=== PATIENT | male | born 1955 | race Two or more races ===

== ENCOUNTER 2022-09-16 07:24 | Inpatient (IN) | payer MEDICARE, MEDICAID ==
[2022-09-16] VITALS (22 sets, daily range): BP systolic 95–147; BP diastolic 37–65
[~2022-09-16] VITALS: Ht 157.5 cm; Wt 67.6 kg
[2022-09-16] MEDS ORDERED: ACCU-CHEK COMFORT CURVE STRIP VI ONE (07:45)
[2022-09-16] MEDS ORDERED: NOREPINEPHRINE 8 MG/250ML KIT 250 ML IV ONE (08:12)
[2022-09-16] MEDS: NOREPINEPHRINE 8 MG/250ML KIT 250 ML IV SCH ×2 (08:22→20:17)
[2022-09-16 09:01] LABS: Hemoglobin 7.5 g/dL (13.5-17.5); Mean Corpuscular Volume 95.9 fL (80.0-100.0)
[2022-09-16 09:04] LABS: Hematocrit 24.3 % (41.0-53.0); Mean Corpuscular Hemoglobin 29.7 pg (28.0-32.0); Red Blood Cells 2.54 10^6/uL (4.5-5.90); Red Cell Distribution Width 18.4 % (11.8-14.3)
[2022-09-16 09:13] LABS: White Blood Cell 33.5 10^3/uL (4.4-10.8)
[2022-09-16 09:14] LABS: Basophils % (manual) 0 (0.0-2.0); Blast Cells 0; Eosinophils % (manual) 0 (0-7); Metamyelocytes % 0; Myelocytes % 0; Promyelocytes % 0; Reactive Lymphocytes 0
[2022-09-16] MEDS ORDERED: CLINDAMYCIN 300MG IV 50 ML IV ONE (09:15)
[2022-09-16] MEDS ORDERED: PIPERACILLIN-TAZOB 3.375GM 100 ML IV ONE (09:15)
[2022-09-16 09:34] LABS: Albumin 1.8 g/dL (3.4-5.0); Potassium 3.5 mmol/L (3.5-5.1)
[2022-09-16 09:38] LABS: BUN/Creatinine Ratio 4.7 (10.0-20.0); Bilirubin, Total 0.2 mg/dL (0.2-1.0); Total Protein 5.2 g/dL (6.4-8.2)
[2022-09-16] MEDS ORDERED: metroNIDAZOLE 500MG/100ML 100 ML IV ONE (10:30)
[2022-09-16 11:28] LABS: Band Neutrophils % (manual) 4; Lymphocytes % (manual) 12 (10.0-50.0); Monocytes % (manual) 4 (0-12)
[2022-09-16] MEDS ORDERED: ONDANSETRON HCL 4 MG/2 ML VIAL IV PRN (13:00)
[2022-09-16] MEDS ORDERED: DEXTROSE (50%) 50ML SYRG IV PRN (13:00)
[2022-09-16] MEDS ORDERED: DOCUSATE SOD 100 MG CAP PO PRN (13:00)
[2022-09-16 13:42] LABS: Magnesium 2.4 mg/dL (1.6-2.6); Phosphorus 5.7 mg/dL (2.5-4.90)
[2022-09-16] MEDS ORDERED: VANCOMYCIN PER PHARMACY 0 MG IV SCH (14:00)
[2022-09-16 14:04] LABS: Hematocrit 28.1 % (41.0-53.0); Hemoglobin 8.3 g/dL (13.5-17.5)
[2022-09-16 14:31] LABS: Lactic Acid w/Reflex 4.7 mmol/L (0.4-2.0)
[2022-09-16] MEDS ORDERED: VANCOMYCIN 750mg/250ml 250 ML IV ONE (15:00)
[2022-09-16] MEDS ORDERED: ALBUMIN 25% 100 ML IV ONE (17:15)
[2022-09-16] MEDS ORDERED: PERITONEAL DIALYSIS IP ONE (17:30)
[2022-09-16] MEDS: ACCU-CHEK COMFORT CURVE STRIP VI SCH (18:35)
[2022-09-16] MEDS: InsuLIN REG 1unit/0.01ml Soln (100units/ml) SC SCH (18:39)
[2022-09-16] MEDS ORDERED: LISI40TA11 PO (18:50)
[2022-09-16] MEDS ORDERED: REPA2TAB8 OR (18:50)
[2022-09-16] MEDS ORDERED: CALC667C PO (18:50)
[2022-09-16] MEDS ORDERED: FERR-20 PO (18:50)
[2022-09-16] MEDS ORDERED: AML5T GT (18:50)
[2022-09-16] MEDS ORDERED: CIPR500T4 PO (18:50)
[2022-09-16] MEDS ORDERED: METO25TA5 PO (18:50)
[2022-09-16] MEDS ORDERED: ATOR40TA52 PO (18:50)
[2022-09-16] MEDS ORDERED: SITA50TA PO (18:50)
[2022-09-16] MEDS ORDERED: ASPI325T4 PO (18:50)
[2022-09-16] MEDS ORDERED: LINEZOLID 600MG/300ML 300 ML IV SCH (22:00)
[2022-09-16] MEDS: PANTOPRAZOLE 40 MG/10 ML VIAL INJ IV SCH (22:02)
[2022-09-16] MEDS: PIPERACILLIN-TAZOB 2.25GM 50 ML IV SCH (22:02)
[2022-09-17] VITALS (102 sets, daily range): BP systolic 82–159; BP diastolic 36–89
[2022-09-17 04:23] LABS: Hematocrit 24.5 % (41.0-53.0); Hemoglobin 7.3 g/dL (13.5-17.5); Mean Corpuscular Hemoglobin 28.9 pg (28.0-32.0); Mean Corpuscular Hgb Conc. 29.8 g/dL (32.0-36.0); Mean Corpuscular Volume 96.9 fL (80.0-100.0); Red Blood Cells 2.53 10^6/uL (4.5-5.90); Red Cell Distribution Width 18.5 % (11.8-14.3)
[2022-09-17 04:27] LABS: Albumin 2.2 g/dL (3.4-5.0); BUN/Creatinine Ratio 5.1 (10.0-20.0); Calcium 8.1 mg/dL (8.5-10.1); Potassium 3.3 mmol/L (3.5-5.1)
[2022-09-17 04:29] LABS: Bilirubin, Total 0.3 mg/dL (0.2-1.0); Total Protein 6.5 g/dL (6.4-8.2)
[2022-09-17 05:16] LABS: White Blood Cell 42.6 10^3/uL (4.4-10.8)
[2022-09-17 05:17] LABS: Basophils % (manual) 0 (0.0-2.0); Blast Cells 0; Eosinophils % (manual) 0 (0-7); Metamyelocytes % 0; Myelocytes % 0; Promyelocytes % 0; Reactive Lymphocytes 0
[2022-09-17] MEDS: ACCU-CHEK COMFORT CURVE STRIP VI SCH ×4 (05:47→18:50)
[2022-09-17] MEDS: InsuLIN REG 1unit/0.01ml Soln (100units/ml) SC SCH ×4 (05:57→18:51)
[2022-09-17 08:36] LABS: Band Neutrophils % (manual) 9; Lymphocytes % (manual) 3 (10.0-50.0); Monocytes % (manual) 6 (0-12)
[2022-09-17] MEDS ORDERED: cefTRIAXone 1GM/50ML D5W 50 ML IV SCH (09:00)
[2022-09-17] MEDS ORDERED: PERITONEAL DIALYSIS 1.5% SOLN 2,000 ML IP SCH ×2 (10:00→16:00)
[2022-09-17] MEDS: PANTOPRAZOLE 40 MG/10 ML VIAL INJ IV SCH (10:32)
[2022-09-17] MEDS: PIPERACILLIN-TAZOB 2.25GM 50 ML IV SCH (10:32)
[2022-09-17] MEDS ORDERED: MEROPENEM 1GM IVPB 100 ML IV ONE (11:15)
[2022-09-17] MEDS ORDERED: ETOMIDATE (2MG/ML) 20ML VIAL IV ONE ×2 (11:16→11:30)
[2022-09-17] MEDS ORDERED: ROCURONIUM 10MG/ML 10ML VIAL IV ONE (11:16)
[2022-09-17] MEDS ORDERED: fentaNYL Drip 2500mCg/250mlNS 250 ML IV ONE (11:19)
[2022-09-17] MEDS ORDERED: MIDAZOLAM DRIP 50 mg/50mL 50 ML IV ONE (11:19)
[2022-09-17] MEDS ORDERED: PROPOFOL 100 ML IV SCH (11:30)
[2022-09-17] MEDS: MIDAZOLAM DRIP 50 mg/50mL 50 ML IV SCH ×3 (11:30→15:30)
[2022-09-17] MEDS ORDERED: fentaNYL Drip 2500mCg/250mlNS 250 ML IV SCH ×2 (11:30→15:30)
[2022-09-17] MEDS ORDERED: SODIUM BICARBONATE 8.4 % INJ 50ML VIAL IV ONE (11:40)
[2022-09-17] MEDS ORDERED: DOPamine 1600MCG/ML D5W 250 ML IV SCH ×2 (11:40→11:45)
[2022-09-17] MEDS ORDERED: CALCIUM CHL 100MG/ML 1,000 MG in D5W 5% 100 ML IV ONE (11:40)
[2022-09-17] MEDS ORDERED: SODIUM CHLORIDE 0.9% 250 ML IV ONE (11:45)
[2022-09-17 12:57] LABS: Urine Bacteria FEW /hpf (None Seen); Urine Blood 2+ /uL (Negative); Urine Hyaline Cast FEW /lpf (0 - 2); Urine Specific Gravity 1.013 (1.001-1.035); Urine WBC 12 /hpf (0 - 3); Urine WBC Clumps PRESENT /hpf (None Seen)
[2022-09-17 13:16] LABS: INR 1.69 (0.9-1.15); Partial Thromboplastin Time 39.6 sec (24.6-33.4)
[2022-09-17] MEDS: NOREPINEPHRINE 8 MG/250ML KIT 250 ML IV SCH (16:34)
[2022-09-17] MEDS: NOREPINEPHRINE BITARTRATE 32 MG in SODIUM CHL 0.9% 218 ML IV SCH ×2 (16:45→21:57)
[2022-09-17] MEDS ORDERED: EPINEPHrine HCL INJECTION 16 MG in D5W 5% 234 ML IV SCH (16:45)
[2022-09-17] MEDS ORDERED: VASOPRESSIN 20 UNITS in SODIUM CHL 0.9% 99 ML IV SCH (16:45)
[2022-09-17] MEDS ORDERED: ACETAMINOPHEN 325 MG TAB PO PRN (18:00)
[2022-09-17] MEDS: PERITONEAL DIALYSIS 1.5% SOLN 2,000 ML IP SCH ×2 (18:40→18:53)
[2022-09-18] VITALS (11 sets, daily range): BP systolic 92–131; BP diastolic 54–66
[2022-09-18] MEDS: MIDAZOLAM DRIP 50 mg/50mL 50 ML IV SCH (00:51)
[2022-09-18] MEDS: InsuLIN REG 1unit/0.01ml Soln (100units/ml) SC SCH (00:51)
[2022-09-18] MEDS: ACCU-CHEK COMFORT CURVE STRIP VI SCH (00:52)
[2022-09-18] MEDS ORDERED: AMIODARONE 450mg/250ml AE 250 ML IV ONE (02:06)
[2022-09-18] MEDS ORDERED: AMIODARONE HCL (50 MG/ ML) 3 ML VIAL IV ONE (02:06)
[2022-09-18] MEDS ORDERED: AMIODARONE HCL 150 MG in D5W 5% 100 ML IV ONE (02:15)
[2022-09-18] MEDS ORDERED: SOD CHL 0.45% 1,000 ML IV ONE (02:15)
[2022-09-18] MEDS ORDERED: AMIODARONE 450mg/250ml AE 250 ML IV SCH (02:30)
[2022-09-18 03:22] LABS: Alanine Aminotransferase 20 U/L (16-61); Albumin 1.1 g/dL (3.4-5.0); Anion Gap 20 (5-15); Aspartate Aminotransferase 78 U/L (15-37); BUN/Creatinine Ratio 5.3 (10.0-20.0); Blood Urea Nitrogen 40 mg/dL (7-18); Calcium 7.9 mg/dL (8.5-10.1); Carbon Dioxide 16 mmol/L (21-32); Chloride 106 mmol/L (98-107); GFR African American 9 mL/min; GFR Non-African American 8 mL/min; Glucose 243 mg/dL (74-106); Sodium 142 mmol/L (136-145)
[2022-09-18 03:25] LABS: Alkaline Phosphatase 79 U/L (45-117); Bilirubin, Total 0.4 mg/dL (0.2-1.0); Total Protein 4.2 g/dL (6.4-8.2)
[2022-09-18] MEDS ORDERED: PANTOPRAZOLE 40 MG/10 ML VIAL INJ IV SCH (10:00)
[2022-09-18] MEDS ORDERED: PERITONEAL DIALYSIS 1.5% SOLN 2,000 ML IP SCH (10:00)
[2022-09-18] MEDS ORDERED: MEROPENEM 1GM IVPB 100 ML IV SCH (10:00)
[2022-09-18] MEDS ORDERED: MEROPENEM 500MG IVPB 50 ML IV SCH (10:00)
[2022-09-18] MEDS ORDERED: CALCIUM CHLOR(10%) 100MG/ML 10ML SYRINGE IV ONE (11:24)
[2022-09-18] MEDS ORDERED: EPINEPHrine HCL 1 MG/10 ML SYRG IV ONE (11:24)
[2022-09-18] MEDS ORDERED: SODIUM BICARBONATE 8.4% INJ 50ML SYRINGE IV ONE (11:24)
== END 2022-09-18 07:45 | DRG 564 ==
LOC: EDSEX 07:24 → ER 07:24 → EDBD 07:24 → TELE 13:13 → ICU CENTRL 15:21
PROVIDERS: ADMIT Nurse Practitioner Family; ATTEND Nurse Practitioner Family
PROC: 0BH17EZ Insertion of Endotracheal Airway into Trachea, Via Natural or Artificial Opening (ICD-10-PCS; 2022-09-17)
PROC: 5A1935Z Respiratory Ventilation, Less than 24 Consecutive Hours (ICD-10-PCS; 2022-09-17)
PROC: 5A09357 Assistance with Respiratory Ventilation, Less than 24 Consecutive Hours, Continuous Positive Airway Pressure (ICD-10-PCS; 2022-09-17)
PROC: 3E1M39Z Irrigation of Peritoneal Cavity using Dialysate, Percutaneous Approach (ICD-10-PCS; 2022-09-17)
PROC: 5A12012 Performance of Cardiac Output, Single, Manual (ICD-10-PCS; principal; 2022-09-18)
PROC: 3E1M39Z Irrigation of Peritoneal Cavity using Dialysate, Percutaneous Approach (ICD-10-PCS; 2022-09-18)
DX: T87.43 Infection of amputation stump, right lower extremity (principal); A41.9 Sepsis, unspecified organism; E43 Unspecified severe protein-calorie malnutrition; N18.6 End stage renal disease; R65.21 Severe sepsis with septic shock; J18.9 Pneumonia, unspecified organism; G92.8 Other toxic encephalopathy; J96.00 Acute respiratory failure, unspecified whether with hypoxia or hypercapnia; K92.2 Gastrointestinal hemorrhage, unspecified; E11.52 Type 2 diabetes mellitus with diabetic peripheral angiopathy with gangrene; D62 Acute posthemorrhagic anemia; I12.0 Hypertensive chronic kidney disease with stage 5 chronic kidney disease or end stage renal disease; E11.22 Type 2 diabetes mellitus with diabetic chronic kidney disease; E11.42 Type 2 diabetes mellitus with diabetic polyneuropathy; E21.1 Secondary hyperparathyroidism, not elsewhere classified; Y83.8 Other surgical procedures as the cause of abnormal reaction of the patient, or of later complication, without mention of misadventure at the time of the procedure; D75.839 Thrombocytosis, unspecified; E11.65 Type 2 diabetes mellitus with hyperglycemia; D63.1 Anemia in chronic kidney disease; Z99.2 Dependence on renal dialysis; Z89.512 Acquired absence of left leg below knee; Y92.89 Other specified places as the place of occurrence of the external cause; Z68.27 Body mass index [BMI] 27.0-27.9, adult
CPT/HCPCS: 36415; 36600; 70450; 71045; 73620; 74176; 76705; 80053; 80202; 80320; 81001; 82805; 82962; 83605; 83735; 83880; 84100; 84132; 84484; 85007; 85014; 85018; 85027; 85610; 85730; 86850; 86900; 86901; 86920; 87040; 87070; 87081; 87086; 87205; 89051; 93005; 93306; 93926; 93971; 94002; 94660; 96365; 96366; 96368; 99291; C9113; G0378; J0171; J2185; J2250; J2543; J3490; J7060; P9047